=== PATIENT | female | born 1960 | race Caucasian/White ===

== ENCOUNTER 2020-10-22 19:28 | Inpatient (IN) | payer MEDICARE, BC ==
[~2020-10-22] VITALS: Ht 152.4 cm; Wt 120.6 kg
[2020-10-22] MEDS ORDERED: BENZONATATE 100 MG CAPSULE. PO ONE (20:15)
[2020-10-22] MEDS ORDERED: HYDROcodone/APAP 5/325MG 1 TAB TABLET PO ONE (20:30)
[2020-10-22] MEDS ORDERED: IPRATRPIUM/ALBUTEROL 0.5/2.5MG 3 ML NEBU. NEB ONE (20:30)
--- NOTE | 2020-10-22 21:06 | PHYS DOC ---
Past History Past Medical History: High Cholesterol, Hypertension (JAYLON ROMO APRN) Past Surgical History: Cholecystectomy, Hysterectomy (JAYLON ROMO APRN) Alcohol Use: None (JAYLON ROMO APRN) Adult General Chief Complaint Chief Complaint: SHORTNESS OF BREATH HPI HPI Patient is a 60-year-old female presents emergency department complaining that she had a complete cardiopulmonary work-up at [facility] yesterday and they told her nothing was wrong however she feels like she might have the COVID-19 virus as she lives at home with her daughter who tested positive for the COVID-19 virus. Patient states that she has had a nonproductive cough for the past 3 days with shortness of breath on exertion. Patient denies chest pain, chest congestion, nasal congestion. Patient denies fever or chills at home, patient denies nausea, vomiting, diarrhea, abdominal pain, constipation. Patient does complain of sore throat and headache. Patient rates her pain a 5/10 on a 1-10 pain scale. Patient denies any urinary tract infection type signs and symptoms, denies rashes of her skin. Patient states she is a type II diabetic. Patient states she had a flu vaccine in 2019, denies having a COVID-19 vaccination this year. (JAYLON ROMO APRN) Review of Systems Review of Systems 14 body systems of review of systems have been reviewed. See HPI for pertinent positives and negative responses, otherwise all other systems are negative, nonpertinent or noncontributory. (JAYLON ROMO APRN) Current Medications Current Medications Patient reports taking 81 mg aspirin daily, hydrochlorothiazide 25 mg twice daily, levothyroxine 200 mcg daily, Prevacid 15 mg daily, meloxicam 15 mg daily, Cymbalta 30 mg twice daily, nifedipine 30 mg daily, metformin 500 mg q. lunchtime, Plaquenil 200 mg twice daily, folic acid 1 mg daily, atorvastatin 40 mg nightly, Xyzal 5 mg nightly Current Medications Medications (Trade) Dose Ordered Sig/Celestina Start Time Stop Time Status Last Admin Dose Admin Acetaminophen/ Hydrocodone Bitart (Lortab 5/325) 2 tab 1X ONCE 10/22/20 20:30 10/22/20 20:38 DC 10/22/20 20:44 2 TAB Albuterol/ Ipratropium (Duoneb) 3 ml 1X ONCE 10/22/20 20:30 10/22/20 20:31 DC 10/22/20 20:48 3 ML Benzonatate (Tessalon Perle) 100 mg 1X ONCE 10/22/20 20:15 10/22/20 20:16 DC 10/22/20 20:24 100 MG (JAYLON ROMO APRN) Allergies Allergies Allergies Coded Allergies Type Severity Reaction Last Updated Verified No Known Drug Allergies 10/22/20 No (JAYLON ROMO APRN) Physical Exam Physical Exam Constitutional: Well developed, well nourished, no acute distress, non-toxic appearance. Patient is breathing 30 times per minute during physical exami nation. HENT: Normocephalic, atraumatic, bilateral external ears normal, oropharynx moist, no oral exudates, nose normal. Eyes: PERRLA, EOMI, conjunctiva normal, no discharge. Neck: Normal range of motion, no tenderness, supple, no stridor. Cardiovascular:Heart rate regular rhythm, no murmur, heart sounds S1-S2. Lungs & Thorax: Bilateral breath sounds clear to auscultation with diminished sounds at bases bilaterally, no other adventitious lung sounds appreciated. Abdomen: Bowel sounds normal, soft, no tenderness, no masses, no pulsatile masses. Skin: Warm, dry, no erythema, no rash. Back: No tenderness, no CVA tenderness. Extremities: No tenderness, no cyanosis, no clubbing, ROM intact, no edema. Neurologic: Alert and oriented X 3, normal motor function, normal sensory function, no focal deficits noted. Psychologic: Affect normal, judgement normal, mood normal. (JAYLON ROMO APRN) Current Patient Data Vital Signs Vital Signs Date Time Temp Pulse Resp B/P (MAP) Pulse Ox O2 Delivery O2 Flow Rate FiO2 10/22/20 20:44 22 96 Room Air 10/22/20 20:33 94 142/69 (93) 2.0 10/22/20 19:28 97.5 Lab Results Laboratory Tests Test 10/22/20 20:19 Group A Streptococcus Rapid Negative (NEGATIVE) (JAYLON ROMO APRN) EKG EKG [] (JAYLON ROMO APRN) Radiology/Procedures Radiology/Procedures PATIENT: GIDEONDELLAMALACHIALEJANDROUNT: [id number] : 1960 LOCATION: ER AGE: 60 SEX: F EXAM STATUS: PRE ER ORD. PHYSICIAN: JAYLON ROMO APRN REASON: COUGH, PUI PROCEDURE: CHEST AP ONLY Single view chest dated 10/22/2020. No comparison available. Clinical data indication: Cough. FINDINGS: Single upright portable exam performed. Heart and mediastinal contours within normal limits. There is nodular and peripheral patchy bilateral airspace disease. No pleural effusion. No pneumothorax. IMPRESSION: Bilateral airspace disease consistent with pneumonia. Covid 19 pneumonitis not excluded. Electronically signed by: Jaylon Keating MD (10/22/2020 9:02 PM) [facility] DICTATED AND SIGNED BY: JAYLON KEATING MD DATE: 10/22/202100 CC: JAYLON ROMO APRN ~MTH0 0 (JAYLON ROMO APRN) Heart Score Risk Factors: Risk Factors: DM, Current or recent (<one month) smoker, HTN, HLP, family history of CAD, obesity. Risk Scores: Risk Factors: DM, Current or recent (<one month) smoker, HTN, HLP, family history of CAD, obesity. (JAYLON ROMO APRN) Course & Med Decision Making Course & Med Decision Making Pertinent Labs and Imaging studies reviewed. (See chart for details) 60-year-old female, vital signs reviewed, presents emergency department complaining of cough and worried she might have the COVID-19 virus and ER work- up was initiated. Patient denied any chest pains however does complain of shortness of breath. Patient was noted to have marked hypoxia with a O2 sat of 88% on room air while at rest. A chest x-ray, labs, UA was ordered. A flu virus, COVID-19 virus, rapid strep-A pending at this time Patient placed on 2 L nasal cannula Patient's chest x-ray concerning for bilateral lobe pneumonia, discussed case with ED attending Dr. Donovan who recommended given 500 mg p.o. Levaquin. Serum labs pending at this time. Called and reviewed case with HIMS physician Dr. Florence who agreed to assume care under admission to the telemetry unit at [facility] for the diagnosis of bilateral lower lobe pneumonia, PUI, hypoxia with the information he was given. Dr. Florence has assumed patient care at this time. Dr. Florence recommended patient be given 10 mg Decadron IV, Dr. Florence recommended against continuation of antibiotics at this time. Dr. Florence aware of lactic acid of 3.2 pending bed assignment at this time. Patient is PUI, I wore N95 mask, protective goggles, face shield, PPE gown and gloves during all contact with patient (JAYLON ROMO APRN) Course & Med Decision Making Did not see or evaluate patient. Agree with TELEPHONE INFORMATION CLERK work-up and disposition. (LEA DONOVAN MD) Dragon Disclaimer Dragon Disclaimer This electronic medical record was generated, in whole or in part, using a voice recognition dictation system. (JAYLON ROMO APRN) Departure Departure: Impression: Primary Impression: Pneumonia of both lower lobes Additional Impressions: Hypoxia Person under investigation for COVID-19 Disposition: ADMITTED INPT THIS [facility] Admitting Physician: Hood Florence (Admitted to the telemetry unit to Dr. Florence) (JAYLON ROMO APRN) Condition: GUARDED Problem Qualifiers Primary Impression: Pneumonia of both lower lobes Pneumonia type: due to unspecified organism Qualified Codes: J18.9 - Pneumonia, unspecified organism JAYLON ROMO APRN Oct 22, 2020 21:06 LEA DONOVAN MD Oct 22, 2020 22:24
[2020-10-22 21:34] LABS: INFLUENZA A PATIENT NEGATIVE (NEGATIVE); INFLUENZA B PATIENT NEGATIVE (NEGATIVE)
[2020-10-22 21:45] LABS: BASO % 0 % (0-3); EOS % 0 % (0-3); HEMATOCRIT 36.3 % (36.0-47.0); HEMOGLOBIN 11.9 g/dL (12.0-15.5); LYMPH # 0.9 x10^3/uL (1.0-4.8); LYMPH % 10 % (24-48); MEAN CORPUSCULAR HEMOGLOBIN 30 pg (25-35); MEAN CORPUSCULAR HGB CONC 33 g/dL (31-37); MEAN CORPUSCULAR VOLUME 91 fL (79-100); MONO # 0.1 x10^3/uL (0.0-1.1); MONO % 1 % (0-9); NEUT # 8.3 x10^3uL (1.8-7.7); NEUT % 89 % (31-73); PLATELET COUNT 221 x10^3/uL (140-400); RED BLOOD COUNT 3.98 x10^6/uL (3.50-5.40); RED CELL DISTRIBUTION WIDTH 14.7 % (11.5-14.5); WHITE BLOOD COUNT 9.3 x10^3/uL (4.0-11.0)
[2020-10-22 21:55] LABS: BACTERIA,URINE 0 /HPF (0-FEW); BILIRUBIN,URINE NEG (NEG); CLARITY,URINE CLOUDY; COLOR,URINE AMBER; GLUCOSE,URINE NEG (NEG); NITRITE,URINE NEG (NEG); SQUAMOUS EPITHELIAL CELL,UR MANY /LPF; UROBILINOGEN,URINE 0.2 mg/dL (0.2 mg/dL); WBC,URINE OCC /HPF (0-4)
[2020-10-22 21:58] LABS: ALBUMIN 3.1 g/dL (3.4-5.0); ALBUMIN/GLOBULIN RATIO 0.8 (1.0-1.7); CALCIUM 8.2 mg/dL (8.5-10.1); GFR 30.9; TOTAL BILIRUBIN 0.3 mg/dL (0.2-1.0); TOTAL PROTEIN 7.1 g/dL (6.4-8.2)
[2020-10-22 21:59] LABS: CREATININE 1.7 mg/dL (0.6-1.0); POTASSIUM 3.1 mmol/L (3.5-5.1)
[2020-10-22] MEDS ORDERED: levoFLOXacin 500 MG TABLET PO ONE (22:15)
[2020-10-22] MEDS ORDERED: DEXAMETHASONE SOD PHOS 10 MG/ML VIAL. IV ONE (22:15)
[2020-10-22 22:45] VITALS: BP 135/63
[2020-10-23] MEDS ORDERED: HYDR200T71 PO (00:25)
[2020-10-23] MEDS ORDERED: POTA10TA5 PO (00:25)
[2020-10-23] MEDS ORDERED: LEVO5TAB29 PO (00:25)
[2020-10-23] MEDS ORDERED: METF-638 PO (00:25)
[2020-10-23] MEDS ORDERED: OMEG-33 PO (00:25)
[2020-10-23] MEDS ORDERED: NIFE30TA15 PO (00:25)
[2020-10-23] MEDS ORDERED: HYDR50TA9 PO (00:25)
[2020-10-23] MEDS ORDERED: FOLI20CA PO (00:25)
[2020-10-23] MEDS ORDERED: ASPI-630 PO (00:25)
[2020-10-23] MEDS ORDERED: DULO60CA6 PO (00:25)
[2020-10-23] MEDS ORDERED: LANS15CA78 PO (00:25)
[2020-10-23] MEDS ORDERED: PSYL0.5215 PO (00:25)
[2020-10-23] MEDS ORDERED: LEVO200T5 PO (00:25)
[2020-10-23] MEDS ORDERED: MULT-735 PO (00:25)
[2020-10-23] MEDS ORDERED: ATOR40TA59 PO (00:25)
[2020-10-23] MEDS ORDERED: MELO15TA23 PO (00:25)
--- NOTE | 2020-10-23 00:32 | NUR ---
The patient, HEBER AMARO, 60 y/o, F admitted by ALVIN ARROYO MD, was given written information regarding hospital policies, unit procedures and contact persons. Valuables were checked and vital signs noted. PT presented to the ER with increased work of breathing, tachypnea, weakness. PT had been seen at [facility] ER the night before, treated for hypokalemia, discharged. PT states she has had multiple COVID tests, all negative. PT's daughter (who lives with in basement) tested positive for COVID and is currently hospitalized. Daughter lives in basement with her . PT is disabled due to osteoarthritis and fibromyalgia.
[2020-10-23 05:41] VITALS: BP 157/70
[2020-10-23] MEDS ORDERED: LANSOPRAZOLE 30 MG TAB.RAP.DR PO SCH (10:00)
[2020-10-23 10:26] VITALS: BP 124/69
[2020-10-23] MEDS: OMEGA-3 FATTY ACIDS/FISH OIL 1,000 MG CAPSULE. PO SCH (10:26)
[2020-10-23] MEDS: DULoxetine HCL 60 MG CAPSULE.DR PO SCH (10:26)
[2020-10-23] MEDS: ASPIRIN CHEWABLE 81 MG TABLET. PO SCH (10:26)
[2020-10-23] MEDS: PSYLLIUM SEED (WITH SUGAR) PACKET. PO SCH (10:26)
[2020-10-23] MEDS ORDERED: POTASSIUM CHLORIDE 20 MEQ TABLET.ER. PO ONE (11:00)
[2020-10-23] MEDS ORDERED: MAGNESIUM SULFATE 1GM 100 ML IV ONE (11:00)
--- NOTE | 2020-10-23 11:00 | HP ---
ADMIT DATE: 10/22/2020 ATTENDING PHYSICIAN: Dr. Arroyo. CHIEF COMPLAINT: Shortness of breath. HISTORY OF PRESENT ILLNESS: The patient is a 60-year-old female admitted from home. She has had a 2-day history of increasing shortness of breath, nonproductive cough and decreased oxygen saturations in the mid 80s on room air. She was given supplemental oxygen. There has been COVID exposure. A daughter has had symptoms. Chest x-ray in the ED showed evidence of a diffuse ground glass appearing infiltrates. She required 4 liters of supplemental oxygen. COVID swab is pending. She is somewhat immunocompromised from her history of rheumatoid arthritis. She is admitted then with atypical pneumonia, hypoxemia and probable COVID infection. PAST MEDICAL HISTORY: Significant for hyperlipidemia, hypertension and rheumatoid arthritis. ALLERGIES: She has no known drug allergies. PAST SURGICAL HISTORY: Cholecystectomy and hysterectomy. CURRENT MEDICATIONS: Reviewed. She takes aspirin 81 mg daily, Lipitor, Cymbalta, folic acid, hydrochlorothiazide, hydroxychloroquine, Prevacid, Synthroid, meloxicam, metformin, multivitamin, nifedipine, potassium, and Metamucil. There is a reported history of diabetes and obesity. SOCIAL HISTORY: She is a nonsmoker, nondrinker. She is disabled for the last 2 years. She lives with a daughter and a son-in-law. FAMILY HISTORY: Her father at age 78 of idiopathic pulmonary fibrosis. Mom at age 74 of ovarian cancer. REVIEW OF SYSTEMS: Significant for the dry nonproductive cough, low-grade fevers, some myalgia, shortness of breath, dyspnea with minimal exertion. No GI symptoms. All other systems reviewed and turned to be negative. PHYSICAL EXAMINATION: GENERAL: When I saw her, this is a pleasant, middle-aged female. VITAL SIGNS: Showed a blood pressure of 127/71 mmHg, temperature 101.2 degrees Fahrenheit yesterday. She is afebrile this morning. Heart rate is 82 and regular, oxygen saturation 91% on 3 liters of nasal cannula. HEENT: Head is without trauma. Pupils are reactive. Sclerae nonicteric. Oropharynx is clear. NECK: Supple. LUNGS: Coarse rhonchi at bases. CARDIOVASCULAR: Showed regular heart tones. No gallops. ABDOMEN: Obese, protuberant. No organomegaly. Hypoactive bowel sounds. EXTREMITIES: Without edema. SKIN: Warm and dry. NEUROLOGIC: Focally intact. Speech is fluent. Bariatric Program Coordinator intact and symmetrical. PERTINENT LABORATORY AND X-RAY STUDIES: Imaging studies showed bilateral airspace disease consistent with atypical pneumonia. Hemoglobin is 11.9 g/dL with white count of 9300. Sodium 135, potassium 3.1 mEq, nonfasting blood sugar 144, creatinine is 1.7 mg/dL. ASSESSMENT: 1. A 60-year-old female with atypical pneumonia, most likely coronavirus. 2. Hypoxemia requiring supplemental oxygen. 3. Obesity. 4. Hypertension. 5. Type 2 diabetes. 6. Hypoxemia. 7. History of rheumatoid arthritis. PLAN: 1. Admit to the inpatient unit. 2. Decadron. 3. Supplemental oxygen. 4. Potassium supplementation with magnesium supplementation. 5. Serial chemistries. 6. We will try to wean down her oxygen requirements. ALVIN ARROYO MD DR: ABEL/rod JOB#: [id number] / [id number]
[2020-10-23] MEDS ORDERED: METFORMIN HCL PO SCH (12:00)
[2020-10-23] MEDS: NON FORMULARY ITEM (Folic Acid 1 CAP) PO SCH (12:00)
[2020-10-23] MEDS: HYDROXYCHLOROQUINE 200 MG TABLET PO SCH (12:02)
[2020-10-23 15:36] VITALS: BP 119/72
[2020-10-23 19:36] VITALS: BP 117/62
[2020-10-23] MEDS ORDERED: ATORVASTATIN CALCIUM 20 MG TABLET ONE (21:00)
[2020-10-23] MEDS: ATORVASTATIN CALCIUM 20 MG TABLET PO SCH (21:19)
[2020-10-23 22:36] VITALS: BP 114/63
[2020-10-24 05:56] VITALS: BP 124/70
[2020-10-24] MEDS: LEVOTHYROXINE 100 MCG TABLET PO SCH (06:14)
[2020-10-24] MEDS: PSYLLIUM SEED (WITH SUGAR) PACKET. PO SCH (09:00)
[2020-10-24] MEDS: MULTIVITAMIN with MINERAL TABLET. PO SCH (09:07)
[2020-10-24] MEDS: DULoxetine HCL 60 MG CAPSULE.DR PO SCH (09:07)
[2020-10-24] MEDS: OMEGA-3 FATTY ACIDS/FISH OIL 1,000 MG CAPSULE. PO SCH (09:07)
[2020-10-24] MEDS: POTASSIUM CHLORIDE 10 MEQ TABLET.ER. PO SCH (09:07)
[2020-10-24] MEDS: ASPIRIN CHEWABLE 81 MG TABLET. PO SCH (09:08)
[2020-10-24] MEDS: PANTOPRAZOLE 40 MG TABLET. PO SCH (09:08)
[2020-10-24 10:19] VITALS: BP 121/70
[2020-10-24 11:08] LABS: CALCIUM 8.5 mg/dL (8.5-10.1); CREATININE 1.3 mg/dL (0.6-1.0); GFR 42.1
[2020-10-24] MEDS: NON FORMULARY ITEM (Folic Acid 1 CAP) PO SCH (12:00)
[2020-10-24] MEDS: HYDROXYCHLOROQUINE 200 MG TABLET PO SCH (12:13)
[2020-10-24] MEDS ORDERED: IOHEXOL 350 MG/ML 100 ML VIAL. IV ONE (12:30)
[2020-10-24] MEDS ORDERED: CONTRAST GIVEN. MC PRN (12:45)
--- NOTE | 2020-10-24 13:42 | RAD ---
CTA CHEST History: Reason: covid negative. r/o PE REDUCED DOSE 75CC OMNIPAQUE 350 / Spl. Instructions: / Histo ry: Comparison: Chest x-ray 10/22/2020. Technique: CT angiogram of the pulmonary arteries after the administration of intravenous contrast. Findings: Opacification of the pulmonary arteries is adequate. There is no pulmonary embolism identified. No ao rtic dissection or aneurysm. Heart size is normal. No significant coronary artery calcification. No p ericardial effusion. Prominent mediastinal lymph nodes measuring up to 8 mm at the right lower pretracheal and 7 mm AP win raymundo are likely reactive. The esophagus is mildly patulous with small hiatus hernia. The airways are patent. No bronchial wall thickening and endobronchial masses. Patchy multifocal airs pace opacities involving bilateral middle and lower lobes. No pleural effusion or pneumothorax. Visualized portions of the upper abdomen are unremarkable. Osseous structures are normal for age. Impression: 1. No pulmonary embolism, aortic dissection or aortic aneurysm. 2. Bilateral upper and lower lobe patchy airspace opacities concerning for multifocal infection incl uding atypical viral pneumonia. Pulmonary edema is considered less likely. ------ Exposure: One or more of the following individualized dose reduction techniques were utilized for thi s examination: 1. Automated exposure control 2. Adjustment of the mA and/or kV according to patient size 3. Use of iterative reconstruction technique. Electronically signed by: Gianni Berger MD (10/24/2020 1:39 PM) [facility]
--- NOTE | 2020-10-24 14:24 | PN ---
DATE: 10/24/2020 ATTENDING PHYSICIAN: Dr. Arroyo SUBJECTIVE: The patient is better. She denied any significant pain or dyspnea. She is still requiring 4 liters of supplemental oxygen by nasal cannula to maintain saturations of 91%. When we dropped below that, she will desaturate. OBJECTIVE FINDINGS: Her COVID swab was negative for coronavirus. Her creatinine on admission was 1.7 mg/dL due to diuretics. Diuretics have been held. PHYSICAL EXAMINATION: VITAL SIGNS: Her blood pressure today is 124/70. She is afebrile, pulse 83 and regular, oxygen saturation 91% on 4 liters. HEENT: Head is without trauma. Pupils are reactive. Sclerae nonicteric. Oropharynx clear. NECK: Supple, no bruits. LUNGS: Otherwise clear with good breath sounds. CARDIOVASCULAR: Showed regular heart tones. No gallops. Peripheral pulses are palpable and full. ABDOMEN: Soft. EXTREMITIES: Without edema. NEUROLOGIC: Focally intact. SKIN: Warm and dry. ASSESSMENT: 1. A 60-year-old female with hypoxemia. 2. COVID, coronavirus ruled out. 3. Chronic kidney disease. 4. Rheumatoid arthritis. 5. Rule out pulmonary embolus. We were unable to do a CT angiogram on admission due to her creatinine of 1.7 mg percent. PLAN: 1. Diuretics have been held. 2. Repeat stat chem-basic. If the creatinine is still slightly elevated, she will need gentle IV hydration and then to bring it down to an acceptable level what we could do is CT angiogram. 3. Continue supplemental oxygen. We are trying to wean down oxygen requirements. 4. Continue home meds. ALVIN ARROYO MD DR: ABEL/rod JOB#: [id number] / [id number]
[2020-10-24] MEDS: ACETAMINOPHEN 325 MG TABLET PO PRN ×2 (14:30→21:21)
[2020-10-24 14:49] VITALS: BP 137/71
[2020-10-24 20:10] VITALS: BP 115/74
[2020-10-24] MEDS ORDERED: ATORVASTATIN CALCIUM 20 MG TABLET ONE (21:00)
[2020-10-24] MEDS: ATORVASTATIN CALCIUM 20 MG TABLET PO SCH (21:12)
[2020-10-24] MEDS ORDERED: MELATONIN 3 MG TABLET PO PRN (23:30)
[2020-10-25 00:30] VITALS: BP 103/63
[2020-10-25] MEDS: LEVOTHYROXINE 100 MCG TABLET PO SCH (05:48)
[2020-10-25 06:23] VITALS: BP 105/71
[2020-10-25 06:31] LABS: CALCIUM 8.5 mg/dL (8.5-10.1); CREATININE 1.4 mg/dL (0.6-1.0); GFR 38.6; POTASSIUM 3.2 mmol/L (3.5-5.1)
[2020-10-25] MEDS: DULoxetine HCL 60 MG CAPSULE.DR PO SCH (08:01)
[2020-10-25] MEDS: POTASSIUM CHLORIDE 10 MEQ TABLET.ER. PO SCH (08:02)
[2020-10-25] MEDS: MULTIVITAMIN with MINERAL TABLET. PO SCH (08:02)
[2020-10-25] MEDS: PANTOPRAZOLE 40 MG TABLET. PO SCH (08:02)
[2020-10-25] MEDS: OMEGA-3 FATTY ACIDS/FISH OIL 1,000 MG CAPSULE. PO SCH (08:02)
[2020-10-25] MEDS: ASPIRIN CHEWABLE 81 MG TABLET. PO SCH (08:02)
[2020-10-25] MEDS: PSYLLIUM SEED (WITH SUGAR) PACKET. PO SCH (08:05)
--- NOTE | 2020-10-25 08:21 | NUR ---
NURSING NOTE PT REFUSED HER METAMUCIL. ROSCOE JOSEPH.
[2020-10-25] MEDS ORDERED: DEXAMETHASONE SOD PHOS 4 MG/ML VIAL. IVP SCH (09:00)
[2020-10-25 11:25] VITALS: BP 117/58
[2020-10-25] MEDS ORDERED: FOLIC ACID 1 MG TABLET PO SCH (12:00)
[2020-10-25 12:37] LABS: BGAS PH 7.48 (7.35-7.45)
[2020-10-25] MEDS: HYDROXYCHLOROQUINE 200 MG TABLET PO SCH (13:11)
--- NOTE | 2020-10-25 14:39 | NUR ---
NSG NOTE; HYPOXIA DISH PERSON QUESTIONED ACCURACY OF O2 SAT OF 82% ON FINGERS EAR SHOWS O2 SAT OF 99 % I USED MULTIPLE DEVICES AND FINGERS AND TOES SHOW O2 SATS IN THE LOW 80s AFTER TRYING A HIGH FLOW NC WITHOUT SUCCESS, PT REQUIRED A NONREBREATHER AT 13 L TO GET TO O2 SAT OF 91%. DR RIVAS NOTIFIED AND TRANSFER TO [facility] ORDER RECEIVED
[2020-10-25 15:09] VITALS: BP 155/67
--- NOTE | 2020-10-25 16:26 | NUR ---
NSG NOTE; TRANSFER TO THE [facility] REPORT CALLED TO AGATHA MALHOTRA PAPER COPY OF CHART INCLUDING MED REC SENT WITH PT ALL PERSONAL ITEMS SENT WITH PT TRANSFERRED TO [facility] AT 1552 VIA CART ACCOMP BY EMS PERSONNEL KELLY NOTIFIED OF TRANSFER
[2020-10-25] MEDS ORDERED: LACTOBACILLUS RHAMNOSUS GG 1 CAPSULE. PO SCH (21:00)
--- NOTE | 2020-10-27 08:54 | NUR ---
IP: notified IP at [facility] of COVID result.
== END 2020-10-25 15:52 | disposition short-term general hospital (02) | DRG 177 ==
LOC: ER 19:28 → 1 SOUTH 22:45
PROVIDERS: ADMIT Hospitalist; ATTEND Hospitalist
PROC: 5A0935A Assistance with Respiratory Ventilation, Less than 24 Consecutive Hours, High Flow/Velocity Cannula (ICD-10-PCS; principal; 2020-10-25)
DX: U07.1 COVID-19 (principal); J12.82 Pneumonia due to coronavirus disease 2019; N17.0 Acute kidney failure with tubular necrosis; J15.6 Pneumonia due to other Gram-negative bacteria; D84.9 Immunodeficiency, unspecified; Z68.43 Body mass index [BMI] 50.0-59.9, adult; E11.22 Type 2 diabetes mellitus with diabetic chronic kidney disease; E66.9 Obesity, unspecified; E78.00 Pure hypercholesterolemia, unspecified; E78.5 Hyperlipidemia, unspecified; I12.9 Hypertensive chronic kidney disease with stage 1 through stage 4 chronic kidney disease, or unspecified chronic kidney disease; M06.9 Rheumatoid arthritis, unspecified; N18.9 Chronic kidney disease, unspecified; R09.02 Hypoxemia; Z80.41 Family history of malignant neoplasm of ovary; Z90.710 Acquired absence of both cervix and uterus; Z90.49 Acquired absence of other specified parts of digestive tract
CPT/HCPCS: 36415; 36600; 71045; 71275; 80048; 80053; 81001; 82803; 82947; 83605; 85025; 87040; 87070; 87804; 87880; 94640; J0696; J1100; J3475; Q9967; U0003; 99285-25

== ENCOUNTER → 2021-05-15 | Outpatient (CLI) | payer BC, OTHER ==
[~2021-05-15] MED LIST: ASPI-630 PO; ATOR40TA59 PO; DULO60CA6 PO; FOLI20CA PO; HYDR200T71 PO; HYDR50TA9 PO; LANS15CA73 PO; LEVO200T5 PO; LEVO5TAB29 PO; MELO15TA23 PO; METF-638 PO; MULT-735 PO; NIFE30TA15 PO; OMEG-33 PO; POTA10TA5 PO; PSYL0.5215 PO
--- NOTE | 2021-05-15 18:04 | RAD ---
EXAMINATION: XR CHEST 2V CLINICAL HISTORY: POST COVID OCTOBER 2020, INTUBATED FOR 30 DAYS IN FEB. EXAM DATE/TIME: 05/15/2021 5:31 PM COMPARISON: Chest radiograph 11/24/2020 FINDINGS: Lines, Tubes, and Devices: None. Cardiomediastinal Silhouette: Normal heart size. Lungs and Pleura: Mild opacities in the lower lung zones, possibly related to subsegmental atelectasi s and/or scarring. No pleural effusion. Pulmonary vasculature unremarkable. Bones and Soft Tissues: Degenerative changes of the thoracic spine. IMPRESSION: Mild residual opacities in the lower lung zones, possibly related to subsegmental atelectasis and/or scarring. Electronically signed by: Peyman Smith DO (05/15/2021 6:01 PM) [facility]
== END ==
LOC: DXRAD 17:17
PROVIDERS: ATTEND Internal Medicine Pulmonary Disease
DX: R91.8 Other nonspecific abnormal finding of lung field (principal); Z86.16 Personal history of COVID-19
CPT/HCPCS: 71046